=== PATIENT | female | born 1975 | race Caucasian/White ===

== ENCOUNTER 2018-10-23 17:37 | Emergency (ER) | payer MEDICAID, SELFPAY ==
[2018-10-23 17:48] VITALS: BP 163/85; PULSE 80; RESP 18; TEMP 36.6; O2SAT 97
--- NOTE | 2018-10-23 18:43 | DI.RAD_ITS ---
SYMPTOMS/DIAGNOSIS: COUGH CHEST: Frontal and lateral views. No priors. The heart size and pulmonary vasculature are within normal limits. The lungs are clear. No effusions or pneumothoraces are identified. Degenerative changes are seen in the spine. IMPRESSION: No acute pulmonary process.
--- NOTE | 2018-10-23 18:46 | ED.GENADUL_ITS ---
Discharge Plan Disposition Patient Disposition: HOME Condition: Fair Discharge Details Chief Complaint: RespSymp Clinical Impression: URI (upper respiratory infection) Primary Care Provider: Kari Edwards ED Provider: Beatrice Pastor Home Meds and New Rx's Prescriptions: New azithromycin 250 mg tablet See Rx Instructions .ROUTE .COMPLEX Qty: 6 RF: 0 benzonatate [Tessalon Perles] 100 mg capsule 100 mg PO QID PRN (Reason: cough) Qty: 14 RF: 0 Continued gabapentin 600 mg Tablet 600 mg PO DAILY RF: 0 ranitidine HCl [Zantac] 300 mg Tablet 300 mg PO DAILY RF: 0 lisinopril 20 mg Tablet 20 mg PO DAILY RF: 0 metoprolol tartrate 50 mg Tablet 50 mg PO DAILY RF: 0 diltiazem HCl [Cardizem] 30 mg Tablet 30 mg PO DAILY RF: 0 Myrbetriq 50 mg Tablet Extended Release 24 Hr 50 mg PO DAILY RF: 0 Discharge Instructions Instructions: Upper Respiratory Infection (ED) Additional Instructions: Encourage hydration. Tylenol and/or ibuprofen as needed for discomfort. If you are not improving over the next 24-48 hours her symptoms are worsening please begin antibiotics as prescribed. If you begin the antibiotics please take the entire course. Contact primary care Thursday to schedule appointment for the end of the week for reevaluation if not improving. If you develop shortness of breath, difficulty breathing, chest pain or other new/worsening symptoms please seek care urgently once again Referrals: Kari Edwards [Primary Care Provider] - Discharge Data Discharge Date/Time-TO BE ENTERED AT DEPARTURE: 10/23/18 20:08 Medical Decision Making Patient 43-year-old female presenting today with chief complaint of URI. She reports that symptoms began approximate 5 days ago. Is endorsing left ear pain, sinus congestion, sore throat and productive cough. States that initially began with cough and other symptoms subsequently began over the last few days. Reports that she is prone to pneumonia. Patient is an active smoker. She denies any history of COPD. Denies any GI upset. Endorses subjective fevers. Has SOB with cough, none currently. Denies CP. HR 80, O2 97%RA, patient is afebrile. Lungs are clear, no acute findings noted on exam. Will obtain cxr to evaluate further. At this point, with her multitude of symptoms, advised that this is likely viral process. Patient cares for patient with similar symptoms. FINDINGS: Lungs: Unremarkable. No consolidation. Pleural space: Unremarkable. No pleural effusion. No pneumothorax. Heart/Mediastinum: Unremarkable. No cardiomegaly. Bones/joints: Moderate thoracic spondylosis. Discussed findings with the patient. At this point, there is no evidence of bacterial infection. Advised that this is likely viral process. However, as the patient is an active smoker and has had pneumonia multiple times historically, will discharge with prescription for abx in the event that symptoms worsen or not improve. When to use was discussed in detail. Encouraged smoking cessation. Encouraged hydration. Tessalon perles prescribed to help with symptomatic management. She was discharged home with these as pharmacies are currently closed. Advised f/u with PCP in one week if not completely improved. All of her questions and concerns were addressed, she is in agreement with this plan. HPI General Date/Time Provider Initiated Documentation: 10/23/18 18:20 . Related Data Home Medications Medication Instructions Recorded Confirmed Myrbetriq 50 mg PO DAILY 10/23/18 10/23/18 azithromycin See Rx Instructions .ROUTE 10/23/18 .COMPLEX #6 tab benzonatate [Tessalon Perles] 100 mg PO QID PRN #14 cap 10/23/18 diltiazem HCl [Cardizem] 30 mg PO DAILY 10/23/18 10/23/18 gabapentin 600 mg PO DAILY 10/23/18 10/23/18 lisinopril 20 mg PO DAILY 10/23/18 10/23/18 metoprolol tartrate 50 mg PO DAILY 10/23/18 10/23/18 ranitidine HCl [Zantac] 300 mg PO DAILY 10/23/18 10/23/18 Previous Rx's Medication Instructions Recorded azithromycin See Rx Instructions .ROUTE 10/23/18 .COMPLEX #6 tab benzonatate [Tessalon Perles] 100 mg PO QID PRN #14 cap 10/23/18 Allergies Allergy/AdvReac Type Severity Reaction Status Date / Time oxybutynin [From Ditropan] Allergy Unverified 10/23/18 17:52 Penicillins Allergy Unverified 10/23/18 17:52 General Stated Complaint: RespSymp MESFIN: 4 PFSH Social History Smoking/Tobacco Use Status: Current every day Course Vital Signs Temperature 36.6 C 10/23/18 17:48 Pulse 80 10/23/18 17:48 Respiratory Rate 18 10/23/18 17:48 Blood Pressure 163/85 H 10/23/18 17:48 Pulse Oximetry 97 10/23/18 17:48 Temperature 36.6 C 10/23/18 17:48 Temperature Source Temporal Artery Scan 10/23/18 17:48 Pulse 80 10/23/18 17:48 Respiratory Rate 18 10/23/18 17:48 Respiratory Effort Non-Labored 10/23/18 17:49 Blood Pressure 163/85 H 10/23/18 17:48 Blood Pressure Position Sitting 10/23/18 17:48 Pulse Oximetry 97 10/23/18 17:48 Oxygen Delivery Method Room Air 10/23/18 17:48 Oxygen Flow Rate 0 10/23/18 17:48 Pain Level 0 10/23/18 17:48
--- NOTE | 2018-10-23 19:43 | DI.VRAD_ITS ---
Addendum created by Misael Yee MD on 10/23/2018 7:43:10 PM EST Impression: No acute findings. Initial report created on 10/23/2018 7:42:51 PM EST EXAM: XR Chest, 2 Views EXAM DATE/TIME: 10/23/2018 7:06 PM CLINICAL HISTORY: 43 years old, female; Signs and symptoms; Cough and fever TECHNIQUE: XR of the chest, 2 views. COMPARISON: No relevant prior studies available. FINDINGS: Lungs: Unremarkable. No consolidation. Pleural space: Unremarkable. No pleural effusion. No pneumothorax. Heart/Mediastinum: Unremarkable. No cardiomegaly. Bones/joints: Moderate thoracic spondylosis. IMPRESSION: Dictated and Authenticated by: Misael Yee MD. Ordering:BRIANNA Barron MD
[2018-10-23] MEDS: Benzonatate 100 MG CAP 300 MG PO (20:07)
== END 2018-10-23 20:08 | disposition home or self-care (01) ==
PROVIDERS: Emergency Provider Physician Assistant; PCP Family Medicine
DX: J06.9 Acute upper respiratory infection, unspecified (principal); F17.210 Nicotine dependence, cigarettes, uncomplicated; Z87.01 Personal history of pneumonia (recurrent)
CPT/HCPCS: 99283; 71046